=== PATIENT | male | born 1975 | race Caucasian/White ===

== ENCOUNTER 2020-06-09 18:42 | Emergency (ER) | payer BC, SELFPAY ==
[2020-06-09] VITALS (7 sets, daily range): BP systolic 120–132; BP diastolic 73–90; PULSE 62–86; RESP 15; TEMP 37.1; O2SAT 97–99; BMI 34.2
--- NOTE | 2020-06-09 19:28 | ED_ITS ---
HPI - Skin/Abscess/Foreign Bdy General Chief complaint: Skin/Abscess/Foreign Body Stated complaint: states infection/ abcess on his back Time Seen by Provider: 06/09/20 19:20 Source: patient Mode of arrival: Ambulatory Limitations: no limitations History of Present Illness HPI narrative: Patient is a 44-year-old male here for evaluation of redness and swelling/infection and possible abscess on his back. He states that he has had issues in this exact same spot in the past but is always drained on its own. He states that will go away and then come back. He does not have any fevers. He noticed that a couple days ago he was starting to become more painful and more inflamed and not draining. He has had issue with this spot is back for greater than 10 years. Has never had it surgically addressed. Related Data Previous Rx's Medication Instructions Recorded clindamycin HCl 300 mg PO QID 7 Days #28 cap 06/09/20 Allergies Allergy/AdvReac Type Severity Reaction Status Date / Time Sulfa (Sulfonamide Allergy Rash Verified 06/09/20 18:56 Antibiotics) Review of Systems Constitutional Constitutional: Denies fatigue, Denies fever(s) and Denies headache(s) ENT Ears, Nose, Mouth, and Throat: Denies headache(s) Cardiovascular Cardiovascular: Denies chest pain and Denies dyspnea Respiratory Respiratory: Denies dyspnea Gastrointestinal Gastrointestinal: Denies abdominal pain Musculoskeletal Musculoskeletal: Reports back pain (Over the area of the infection) and Denies tingling Integumentary/Breasts Comments: Possible abscess on his back Neurologic Neurologic: Denies behavioral changes, Denies headache(s) and Denies tingling Psychiatric Psychiatric: Denies behavioral changes Endocrine Endocrine: Denies fatigue Hematologic/Lymphatic On Anticoagulants: No Allergic/Immunologic Allergic/Immunologic: Denies urticaria Patient History Medical History Cellulitis Social History Smoking Status: Never smoker Smoking Status: Never smoker alcohol intake frequency: 0-2 drinks per day Substance Use Type: does not use Exam Initial Vital Signs Initial Vital Signs: Vital Signs Temperature 98.8 F 06/09/20 18:51 Pulse Rate 86 06/09/20 18:51 Respiratory Rate 15 06/09/20 18:51 Blood Pressure 132/77 06/09/20 18:51 Pulse Oximetry 97 06/09/20 18:51 Const General: cooperative and comfortable HENMT Head: normal to inspection and normocephalic Chest Chest: No tenderness Resp Effort & Inspection: normal respiratory effort Cardio Rate: regular rate GI Inspection: non-distended Back/Spine/Pelvis Thoracic/Lumbar Spine: thoracic spinal tenderness (Over the area of infection) Skin Other: Patient with a large area of induration approximately 10 cm x 10 cm midline in his midthoracic region of his back. There is a center area of whiteness. Surrounding this there is a approximately 20 cm x 10 cm area of redness and warmth. Neuro General: patient alert, patient awake and patient oriented x3 Cognition: normal cognition Extrem General: normal to inspection and capillary refill normal Psych Appearance: grossly normal and well kempt Procedures Abscess I/D I&D #1: Site: other (Back) Local Anesthetic: lidocaine 1% and with bicarb Amount of anesthesia used (mL): 8 Technique: incised with #11 blade Irrigation: No Packing used?: none Complications: other (None) Course Orders Ordered: ED Orders 06/09/20 19:15 Basic Metabolic Panel Stat Complete Blood Count AUTO DIFF Stat 06/09/20 20:10 Blood Culture Stat Discontinued Medications Clindamycin Phosphate (Cleocin) 900 mg in 50 mls @ 50 mls/hr IV NOW ONE Stop: 06/09/20 20:29 Last Infusion: 06/09/20 21:15 Dose: 0 mls/hr Documented by: Admin: 06/09/20 20:15 Dose: 50 mls/hr Documented by: LI Lidocaine/Sodium Bicarbonate (Lido 1%/Sod Bicarb 8.4% (10ml) 10 Ml Syringe) 10 ml INJ NOW ONE Stop: 06/09/20 19:30 Last Admin: 06/09/20 19:46 Dose: 10 ml Documented by: LI Vital Signs Vital signs: Vital Signs - 8 hr 06/09/20 18:51 06/09/20 19:24 06/09/20 19:25 Temperature 98.8 F Pulse Rate 86 83 84 Respiratory Rate 15 Blood Pressure 132/77 125/90 Pulse Oximetry 97 98 98 06/09/20 19:30 06/09/20 20:00 06/09/20 20:13 Temperature Pulse Rate 77 62 77 Respiratory Rate Blood Pressure 129/87 120/73 Pulse Oximetry 97 99 97 06/09/20 21:00 Temperature Pulse Rate Respiratory Rate Blood Pressure 128/74 Pulse Oximetry MDM - Skin/Abscess/Foreign Bdy Lab Data Attestation: I reviewed the patient's lab results. Result diagrams: 06/09/20 19:15 06/09/20 19:15 Labs: Lab Results 06/09/20 06/09/20 Range/Units 19:15 19:15 WBC 10.0 (4.5-11.0) X10^3/uL RBC 4.75 (4.5-5.9) X10^6/uL Hgb 14.5 (13.5-17.5) g/dL Hct 41.8 (41-53) % MCV 87.9 (80-100) fL MCH 30.5 (26-34) PG MCHC 34.7 (30-36) % RDW 12.7 (11.6-14.8) % Plt Count 188 (150-400) X10^3/uL Neut % (Auto) 71.4 (50-75) % Lymph % (Auto) 17.9 L (25-40) % [place] % (Auto) 7.8 (3-14) % Eos % (Auto) 2.3 (2-4) % Baso % (Auto) 0.6 (0-2) % Neut # (Auto) 7100 H (7055-2229) /uL Lymph # (Auto) 1800 (1242-9842) /uL [place] # (Auto) 800 (0-900) /uL Eos # (Auto) 200 (0-450) /uL Baso # (Auto) 100 (0-100) /uL Sodium 137 (137-145) mmol/L Potassium 3.8 (3.4-5.1) mmol/L Chloride 103 (98-107) mmol/L Carbon Dioxide 27 (22-32) mmol/L BUN 24 H (9-20) mg/dL Creatinine 1.04 (0.66-1.25) mg/dL Estimated GFR > 60.0 (>60) mL/min BUN/Creatinine Ratio 23.1 H (6-22) Glucose 88 (70-100) mg/dL Calcium 9.2 (8.4-10.2) mg/dL MDM Narrative Medical decision making narrative: He is nontoxic-appearing. He is a large area of induration with surrounding erythema on his back that is consistent with cellulitis. The area of question on his back appears to have been here in the past. He states he has had issues in this exact same spot in the past. Has come and gone over the past several years and is even drained on its own. I did discuss with him and his that this is most likely a cyst that is reoccurring and less likely an abscess. I did inform him that a cyst can become infected and that does look like that is what is happening today. I did perform an incision and drainage in did express quite a bit amount of what looked like cystic material. It was very foul smelling. The wound was explored to break up any loculations. He was given antibiotics here in the ER and will send home with a prescription of antibiotics given the cellulitis. He was given care instructions. I did inform him that he should discuss with his primary doctor about a referral to see General surgery to have the cystic structure removed. He expressed understanding and agreement. Discharge Plan Departure Patient Disposition: Home Clinical Impression: Infected cyst of skin, Cellulitis Instructions: DI for Cellulitis -- Adult Activity Restrictions/Additional Instructions: Expect drainage from the area when your back. Change the bandage as needed. You can shower like normal. A prescription for antibiotics was transmitted to the pharmacy of your choice. Start taking them tomorrow as directed. Return to the emergency department for any new or worsening symptoms Prescriptions: New clindamycin HCl 300 mg capsule 300 mg PO QID 7 Days Qty: 28 RF: 0 Stand Alone Forms: Work Release Note
[2020-06-09] MEDS: LIDO 1%/SOD BICARB 8.4% (10ML) 10 ML SYRINGE INJ (19:46)
[2020-06-09 19:47] LABS: BUN Creatinine Ratio 23.1 (6-22); Blood Urea Nitrogen 24 mg/dL (9-20); Calcium 9.2 mg/dL (8.4-10.2); Carbon Dioxide 27 mmol/L (22-32); Chloride 103 mmol/L (98-107); Estimated Glomerular Filt Rate > 60.0 mL/min (>60); Glucose 88 mg/dL (70-100); HEMOLYSIS 37 (0-50); Potassium 3.8 mmol/L (3.4-5.1); Sodium 137 mmol/L (137-145)
[2020-06-09 19:51] LABS: Eosinophils Absolute Auto 200 /uL (0-450); Monocytes Absolute Auto 800 /uL (0-900)
[2020-06-09 19:54] LABS: Add Manual Diff / Slide Review NO; Basophils Absolute Auto 100 /uL (0-100); Basophils Percent Auto 0.6 % (0-2); Eosinophils Percent Auto 2.3 % (2-4); Hematocrit 41.8 % (41-53); Hemoglobin 14.5 g/dL (13.5-17.5); Lymphocytes Absolute Auto 1800 /uL (1100-4500); Lymphocytes Percent Auto 17.9 % (25-40); Mean Corpuscular HGB Conc 34.7 % (30-36); Mean Corpuscular Hemoglobin 30.5 PG (26-34); Mean Corpuscular Volume 87.9 fL (80-100); Monocytes Percent Auto 7.8 % (3-14); Neutrophils Absolute Auto 7100 /uL (1500-7000); Neutrophils Percent Auto 71.4 % (50-75); Platelet Count 188 X10^3/uL (150-400); Red Blood Cell Count 4.75 X10^6/uL (4.5-5.9); Red Cell Distribution Width 12.7 % (11.6-14.8)
[2020-06-09] MEDS: CLINDAMYCIN 900 MG/50 ML PIGGYBACK 50 MG IV (20:15)
== END 2020-06-09 21:18 | disposition home or self-care (01) ==
PROVIDERS: Emergency Provider Emergency Medicine
DX: L03.312 Cellulitis of back [any part except buttock and flank] (principal); L72.9 Follicular cyst of the skin and subcutaneous tissue, unspecified
CPT/HCPCS: 10060; 36415; 80048; 85025; 87040; 96365; 99284